=== PATIENT | female | born 1975 | race Caucasian/White ===

== ENCOUNTER → 2025-03-09 | Outpatient (CLI) | payer OTHER ==
--- NOTE | 2025-03-09 15:28 | HMCIMG ---
CT calcium scoring Clinical Information: [facility] SCREENING Comparison: None CT Dose Index (CTDI): 13.30 mGy Dose Length Product (DLP): 186.18 total mGy-cm Findings: Calcium score 0. No identifiable calcification. The CT scan is not a complete chest CT. Covered portion is reviewed for incidental findings. No incidental findings seen. IMPRESSION: Calcium score as above. Calcium score reference stable: 0: No identifiable calcification 1- 10: Minimal identifiable calcification 11-100: Mild calcification 101- 400: Moderate calcification 401 and above: Significant calcification Automated exposure control and adequate statistical iterative reconstructions were utilized as dose reduction techniques.
== END | disposition home or self-care (01) ==
LOC: RAH 14:19
PROVIDERS: ATTEND Nurse Practitioner Family
DX: Z13.6 Encounter for screening for cardiovascular disorders (principal)
CPT/HCPCS: 75571